=== PATIENT | female | born 1945 | race Caucasian/White ===

== ENCOUNTER → 2016-11-22 | Outpatient (CLI) | payer OTHER | LOC: FIMAGING 11:00 | PROVIDERS: ATTEND Registered Nurse | DX: R10.11 Right upper quadrant pain (principal); R06.02 Shortness of breath; R14.0 Abdominal distension (gaseous); N28.1 Cyst of kidney, acquired ==

== ENCOUNTER → 2016-12-06 | Outpatient (CLI) | payer OTHER | LOC: FIMAGING 15:22 | PROVIDERS: ATTEND Family Medicine | DX: R06.02 Shortness of breath (principal) ==

== ENCOUNTER → 2016-12-06 | Outpatient (CLI) | payer OTHER | LOC: BHFA 14:00 | PROVIDERS: ATTEND Internal Medicine | DX: R06.00 Dyspnea, unspecified (principal); R53.83 Other fatigue; R60.9 Edema, unspecified ==

== ENCOUNTER 2017-03-02 15:16 | Emergency (ER) | payer OTHER ==
[2017-03-02 15:24] VITALS: RESP 18; TEMP 98.2
--- NOTE | 2017-03-02 15:47 | EDPHY ---
H & P Stated Complaint: Tripped on curb, hit chin;lac to chin,no neck pain, no LOC Time Seen by Provider: 03/02/17 15:46 HPI/ROS: HPI CHIEF COMPLAINT: [ ] HISTORY OF PRESENT ILLNESS: [Need 4: Location, Duration, Severity, Quality, Context, Timing Modifying Factors, Associated S&S] Past Medical History: Past Surgical History: Social History: Family History: ROS REVIEW OF SYSTEMS: A comprehensive 10 point review of systems is otherwise negative aside from elements mentioned in the history of present illness. Exam Constitutional triage nursing summary reviewed, vital signs reviewed, awake/ alert. Eyes normal conjunctivae and sclera, EOMI, PERRLA. HENT normal inspection, atraumatic, moist mucus membranes, no epistaxis, neck supple/ no meningismus, no raccoon eyes. Respiratory clear to auscultation bilaterally, normal breath sounds, no respiratory distress, no wheezing. Cardiovascular rate normal, regular rhythm, no murmur, no edema, distal pulses normal. Gastrointestinal soft, non-tender, no rebound, no guarding, normal bowel sounds, no distension, no pulsatile mass. Genitourinary no CVA tenderness. Musculoskeletal no midline vertebral tenderness, full range of motion, no calf swelling, no tenderness of extremities, no meningismus, good pulses, neurovascularly intact. Skin pink, warm, & dry, no rash, skin atraumatic. Neurologic awake, alert and oriented x 3, AAOx3, moves all 4 extremities equally, motor intact, sensory intact, CN II-XII intact, normal cerebellar, normal vision, normal speech. Psychiatric normal mood/affect. Heme/Lymph/Immune no lymphadenopathy. Differential Diagnosis: Medical Decision Making: Re-evaluation: Source: Patient - Personal History Current Tetanus Diphtheria and Acellular Pertussis (TDAP): Yes - Medical/Surgical History Hx Asthma: No Hx Chronic Respiratory Disease: No Hx Diabetes: No Hx Cardiac Disease: No Hx Renal Disease: No Hx Cirrhosis: No Hx Alcoholism: No Hx HIV/AIDS: No Hx Splenectomy or Spleen Trauma: No Other PMH: Cholecystectomy, knee surgery, rotator cuff surgery, bladder sling, hypothyroid, uterine suspension, right breast lump removal, bilateral cataract surgery, c.diff, sinus infection - Social History Smoking Status: Never smoked Constitutional: Initial Vital Signs Temperature (C) 36.8 C 03/02/17 15:18 Heart Rate 98 03/02/17 15:18 Respiratory Rate 18 03/02/17 15:18 Blood Pressure 135/84 H 03/02/17 15:18 O2 Sat (%) 97 03/02/17 15:18 O2 Delivery Mode Room Air Allergies/Adverse Reactions: Penicillins Allergy (Mild, Verified 03/02/17 15:17) ITCHING,RASH latex Allergy (Verified 03/02/17 15:17) Home Medications: Medication Instructions Recorded Dextroamphetamine/Amphetamine 25 mg PO DAILY 08/04/13 [Adderall Xr 25 mg Capsule] Herbals/Supplements -Info Only 1 ea PO DAILY 02/07/15 Thyroid,Pork [Axtell Thyroid] 60 mg PO Q2D 02/07/15 Hydrochlorothiazide [HCTZ (*)] 25 mg PO DAILY 02/03/16 Pantoprazole Sodium [Protonix 40mg 40 mg PO DAILY 02/03/16 (*)] Potassium Cl [Klor-Con 20 meq (*)] 20 meq PO BID 02/03/16 Acetaminophen [Tylenol 325mg (*)] 650 mg PO Q6 PRN #0 tab 02/06/16 Departure - Departure Referrals: Beth Maxwell MD [Primary Care Provider] - As per Instructions
--- NOTE | 2017-03-02 15:49 | EDPHY ---
H & P Stated Complaint: Tripped on curb, hit chin;lac to chin,no neck pain, no LOC Time Seen by Provider: 03/02/17 15:46 HPI/ROS: CHIEF COMPLAINT: Mechanical fall, chin laceration HISTORY OF PRESENT ILLNESS: The patient presents to the ED with complaints of a chin laceration in knee abrasion following a mechanical fall. The patient reportedly tripped while walking with 2 items in her hands. She did not lose consciousness. She sustained a 2 cm laceration below her chin. She denies any neck pain, numbness, weakness or additional extremity complaints. The patient does have an abrasion noted to her right knee. REVIEW OF SYSTEMS: A comprehensive 10 point review of systems is otherwise negative aside from elements mentioned in the history of present illness. Source: Patient Exam Limitations: No limitations - Personal History Current Tetanus Diphtheria and Acellular Pertussis (TDAP): Yes - Medical/Surgical History Hx Asthma: No Hx Chronic Respiratory Disease: No Hx Diabetes: No Hx Cardiac Disease: No Hx Renal Disease: No Hx Cirrhosis: No Hx Alcoholism: No Hx HIV/AIDS: No Hx Splenectomy or Spleen Trauma: No Other PMH: Cholecystectomy, knee surgery, rotator cuff surgery, bladder sling, hypothyroid, uterine suspension, right breast lump removal, bilateral cataract surgery, c.diff, sinus infection - Social History Smoking Status: Never smoked - Physical Exam Exam: General Appearance: Alert, no distress Head: Normocephalic, 2 cm laceration underneath chin Neck: No midline tenderness Eyes: Pupils equal and round no pallor or injection ENT, Mouth: Mucous membranes moist Respiratory: There are no retractions, lungs are clear to auscultation Cardiovascular: Regular rate and rhythm Gastrointestinal: Abdomen is soft and nontender, no masses, bowel sounds normal Neurological: A&O, normal motor function, normal sensory exam, normal cranial nerves Skin: Abrasion noted to right knee Musculoskeletal: Neck is supple nontender Extremities: symmetrical, full range of motion Constitutional: Initial Vital Signs Temperature (C) 36.8 C 03/02/17 15:18 Heart Rate 98 03/02/17 15:18 Respiratory Rate 18 03/02/17 15:18 Blood Pressure 135/84 H 03/02/17 15:18 O2 Sat (%) 97 03/02/17 15:18 O2 Delivery Mode Room Air Allergies/Adverse Reactions: Penicillins Allergy (Mild, Verified 03/02/17 15:17) ITCHING,RASH latex Allergy (Verified 03/02/17 15:17) Home Medications: Medication Instructions Recorded Dextroamphetamine/Amphetamine 25 mg PO DAILY 08/04/13 [Adderall Xr 25 mg Capsule] Herbals/Supplements -Info Only 1 ea PO DAILY 02/07/15 Thyroid,Pork [Eldena Thyroid] 60 mg PO Q2D 02/07/15 Hydrochlorothiazide [HCTZ (*)] 25 mg PO DAILY 02/03/16 Pantoprazole Sodium [Protonix 40mg 40 mg PO DAILY 02/03/16 (*)] Potassium Cl [Klor-Con 20 meq (*)] 20 meq PO BID 02/03/16 Acetaminophen [Tylenol 325mg (*)] 650 mg PO Q6 PRN #0 tab 02/06/16 Medical Decision Making Procedures: Procedure: Laceration repair. Verbal consent was obtained from the patient. The 2 cm laceration on the chin was anesthetized using lidocaine with epinephrine. The wound was irrigated per protocol, draped and explored The wound was repaired with 6-0 Ethilon. The wound repair was simple. The procedure was performed by myself. ED Course/Re-evaluation: The patient presents to the ED for evaluation of facial injuries in any abrasion following mechanical fall. The patient had a chin laceration which was repaired by myself. The patient has no evidence of a closed head injury or cervical spine injury. She has no additional traumatic injury noted on exam. The patient will be discharged home and return for suture removal in 7 days. She is given customary aftercare instructions and return precautions. Departure - Departure Disposition: Home, Routine, Self-Care Clinical Impression: Laceration of chin, Abrasion, right knee, initial encounter Condition: Good Instructions: Laceration (ED) Additional Instructions: 1. Apply antibiotic ointment to sutures twice daily. 2. Return to the ED for suture removal in 7 days. 3. Return to the ED for severe pain, worsening symptoms or other concerns. Referrals: Beth Maxwell MD [Primary Care Provider] - As per Instructions
[2017-03-02 17:14] VITALS: BP 132/90; PULSE 88; O2SAT 99
== END 2017-03-02 17:14 | disposition home or self-care (01) ==
PROC: 0HQ1XZZ Repair Face Skin, External Approach (ICD-10-PCS; principal; 2017-03-02)
DX: S01.81XA Laceration without foreign body of other part of head, initial encounter (principal); S80.211A Abrasion, right knee, initial encounter; Z91.040 Latex allergy status; W01.198A Fall on same level from slipping, tripping and stumbling with subsequent striking against other object, initial encounter; Y99.8 Other external cause status; Y93.01 Activity, walking, marching and hiking

== ENCOUNTER → 2017-03-21 | Outpatient (CLI) | payer OTHER | LOC: EDSTATUS 10:50 → FIMAGING 16:19 → FLAB 16:19 | PROVIDERS: ATTEND Family Medicine | DX: K59.00 Constipation, unspecified (principal); R10.9 Unspecified abdominal pain; R11.0 Nausea; R14.0 Abdominal distension (gaseous) ==

== ENCOUNTER → 2018-01-25 | Outpatient (CLI) | payer OTHER | LOC: FIMAGING 11:46 | PROVIDERS: ATTEND Family Medicine | DX: Z12.31 Encounter for screening mammogram for malignant neoplasm of breast (principal) ==